=== PATIENT | female | born 1955 | race Caucasian/White ===

== ENCOUNTER 2018-10-08 11:23 | Outpatient (CLI) | payer BC ==
--- NOTE | 2018-10-08 12:16 | RAD ---
THREE VIEWS CERVICAL SPINE: Comparison: None. History: Neck pain that radiates down to the fingers. FINDINGS: Lateral view of the cervical spine was performed in neutral, flexion and extension. The vertebral bod ies demonstrate normal height and alignment without fracture or subluxation. Alignment is unchanged w ith flexion and extension. The C5-6 through C7-T1 intervertebral discs are narrowed with small anteri or osteophytes. IMPRESSION: Degenerative changes of the lower cervical spine with unchanged alignment with bending. POS: TPC
== END 2018-10-08 11:24 | disposition home or self-care (01) ==
LOC: TBSIIMAG 11:23
PROVIDERS: ATTEND Neurological Surgery
DX: M47.22 Other spondylosis with radiculopathy, cervical region (principal); M50.30 Other cervical disc degeneration, unspecified cervical region; M50.20 Other cervical disc displacement, unspecified cervical region
CPT/HCPCS: 72040

== ENCOUNTER 2019-01-27 14:00 | Outpatient (CLI) | payer BC ==
[2019-01-27 16:08] LABS: Hemoglobin 13.2 g/dL (12.0-16.0); Mean Corpuscular HGB CONC 31.9 g/dL (32.0-36.0); Mean Corpuscular Hemoglobin 29.3 pg (27.0-31.0); Mean Platelet Volume 6.8 fL (7.4-10.4); Platelet Count 317 thou/uL (130-400); RBC Distribution Width 11.7 % (11.5-14.5); White Blood Cell (WBC) Count 10.2 thou/uL (4.8-10.8)
[2019-01-27 16:15] LABS: INR-International Normal Ratio 0.9; PTT 29.1 SEC (22.9-36.1); Prothrombin Time 12.6 SEC (12.0-14.7)
[2019-01-27 16:27] LABS: Anion Gap 11 mmol/L (10-20); BUN (Urea Nitrogen) 13 mg/dL (9.8-20.1); Calc. Creatinine Clearance 0 mL/min (70-130); Calcium 9.3 mg/dL (7.8-10.44); Carbon Dioxide 26 mmol/L (23-31); Chloride 104 mmol/L (98-107); Estimated GFR-MDRD 85; Glucose 77 mg/dL (80-115); Sodium 137 mmol/L (136-145)
== END 2019-01-27 14:01 | disposition home or self-care (01) ==
LOC: LABBT 14:00
PROVIDERS: ATTEND Neurological Surgery
DX: Z01.812 Encounter for preprocedural laboratory examination (principal); M50.20 Other cervical disc displacement, unspecified cervical region; M50.30 Other cervical disc degeneration, unspecified cervical region
CPT/HCPCS: 80048; 85027; 85610; 85730

== ENCOUNTER 2019-02-01 05:47 | Day surgery (SDC) | payer BC ==
--- NOTE | 2019-01-27 19:40 | HP ---
HISTORY OF PRESENT ILLNESS: This is a 63-year-old female, who reports to our office for evaluation of neck and right arm radiculopathy. The patient states that she has had pain for years; however, recently the pain has gotten worse and no longer controlled with injections. For some time, the patient has been able to control pain with injections and physical therapy. However, in the last few months, the injections do not seem to be giving her the relief they used to. The patient states the pain runs down the back of her shoulder blades to the side of her arm into her pointer and middle and ring fingers. She states that it is worse sometimes, her whole hand will go tingly and numb. She has had pain, numbness, tingly, and has been using home exercise program with a home traction device. REVIEW OF SYSTEMS: A 10-point review of systems has been completed and is negative other than stated in the above HPI. PAST MEDICAL HISTORY: Asthma, history of miscarriage, thyroid problems, chronic sinusitis. PAST SURGICAL HISTORY: Gastric sleeve in 2009, hysterectomy, wisdom teeth removal, C-sections, D and C, tummy tuck, breast lift, tonsillectomy, cholecystectomy, L4-L5 surgery in 2017. FAMILY HISTORY: Father was , diagnosed with COPD, hypertension, congestive heart failure, alcoholism, heart disease. Mother , diagnosed with hypertension and heart disease. SOCIAL HISTORY: The patient is a nonsmoker. Denies alcohol or drug use. MEDICATIONS: 1. Pravastatin. 2. Synthroid. 3. Vitamin D3. 4. [place]-3. 5. Advil. 6. Vivelle-Dot (estradiol). 7. Lutein. 8. Tramadol. ALLERGIES: TETANUS, MORPHINE, CODEINE, DOXYCYCLINE, AND LYRICA. PHYSICAL EXAMINATION: CONSTITUTIONAL: The patient is alert and oriented, nontoxic. HEENT. Head is normocephalic and atraumatic. Pupils are equal, round, and reactive to light. Extraocular movements are intact. Hearing is intact. Moist mucous membranes. NECK: Normal, soft, supple. No masses are noted. Range of motion is intact, but painful. NEUROLOGIC: Awake, alert, oriented x3. Memory, attention, fund of knowledge, and language are normal. Cranial nerves are grossly intact. Upper extremities, deltoid, wrist extension, finger extension, finger intrinsics 5/5 bilaterally. Biceps, triceps 4+/5 bilaterally. Reflexes symmetric. Decreased sensation in right compared to left towards pointer, middle, and ring fingers. IMAGING: MRI of the cervical spine, generalized degeneration and herniated nucleus pulposus right C4-C5, moderate herniated nucleus pulposus of left C5-C6, moderate C6-C7 bilaterally. ASSESSMENT AND PLAN: Dr. Armstrong has offered an ACDF. The patient states that she understands the risks and is willing to proceed. Job ID: [id number]
[2019-02-01] MEDS ORDERED: Sodium Chloride 0.9% 10 ML ONE (06:17)
[2019-02-01] MEDS ORDERED: Thrombin 5000 UNITS/5 ML VIAL ONE (06:17)
[2019-02-01] MEDS ORDERED: Fentanyl 100 MCG/2 ML VIAL ONE ×3 (06:19→10:01)
[2019-02-01] MEDS ORDERED: Non-Formulary Medication 1 EACH PO PRN (09:39)
[2019-02-01] MEDS ORDERED: Ondansetron HCl/PF 4 MG/2 ML Vial IVP PRN (09:39)
[2019-02-01] MEDS ORDERED: Promethazine HCl 25 MG/ML VIAL SLOW IVP PRN (09:39)
[2019-02-01] MEDS ORDERED: Morphine Sulfate 2 MG/ML SYRINGE SLOW IVP PRN (09:39)
[2019-02-01] MEDS ORDERED: HYDROcodone/Acetaminophen 5/325 mg Tablet PO PRN ×2 (09:43→09:44)
--- NOTE | 2019-02-01 11:34 | OP ---
DATE OF PROCEDURE: 02/01/2019 [employer] INSPECTOR: July Madera PA-C PREOPERATIVE INDICATION: Treat pain and prevent neurological deterioration. PREOPERATIVE DIAGNOSES: Intervertebral disk herniation right-sided, C6-C7 with C7 radiculopathy. POSTOPERATIVE DIAGNOSES: Intervertebral disk herniation right-sided, C6-C7 with C7 radiculopathy. PROCEDURES PERFORMED: Anterior cervical diskectomy, intervertebral arthrodesis, placement of intervertebral biomechanical device, anterior cervical plating C6-C7, local morselized autograft, morselized allograft, and operating microscope. PREOPERATIVE MEDICATIONS: Ancef 2 g IV. DRAIN NUMBER: Zero. DRAIN TYPE: None. DESCRIPTION OF PROCEDURE: The patient was brought to the operating room. General endotracheal anesthesia was induced. The patient was positioned with her head supported by a donut-shaped headrest and the neck was in normal anatomic alignment. A lateral fluoro radiograph was used to plan our incision. The right side of the neck was sterilely prepped and draped. We opened our incision with a 10 blade knife and controlled bleeding with bipolar cautery. We dissected sharply to the platysma and cut this muscle in-line with our incision. We continued our dissection medial to the sternocleidomastoid and lateral to the trachea and esophagus. We arrived to the prevertebral space. C6-C7 was difficult to visualize through the shoulder, so we placed a marker at C4-C5 and took a lateral fluoro radiograph. From there, we counted down two interspaces. Then, elevated the longus colli muscles off the anterior surface of C6 and C7, and placed self-retaining retractors beneath them. Distraction pins were placed in these two vertebrae and we distracted across the intervening interspace. We incised the interspace with a 15 blade knife and removed disk contents using curettes and rongeurs. The operative microscope was brought into the field. Under microscopic magnification and using microsurgical techniques, we removed the remainder of the intervertebral disk. We accessed the ventral epidural space with a microcurette and without access point, we used Kerrison rongeurs to remove the posterior longitudinal ligament and posterior osteophytes at C6-C7. We decompressed across the entire interspace well out into the foramina on both sides. There was more disk material encroaching on the foramen on the right side and the dura looked mildly erythematous around the nerve suggesting irritation. With our decompression secured, we turned our attention to arthrodesis. With curettes, we prepared the endplates for grafting. A bone rasp was used to measure the height of the interspace. The 7 mm bone graft fit well. We brought a 7 mm PEEK intervertebral device into the field. Osteophytes removed during our decompression, were carefully morselized on the back table after soft tissue was removed. The morselized bone was added to demineralized bone matrix as our fusion substrate and the substrate was packed into the center of this was 7 mm PEEK graft. The graft was advanced into the interspace under radiographic guidance to the appropriate depth. We then took the operative microscope out as well as the distraction pins. A 12 mm anterior cervical plate was brought into the field. We drilled fixed wing pilot holes through the plate into the vertebral bodies at C6 and C7. We affixed the plate with 14 mm fixed screws at C7 and 14 mm variable angle screws at C6. We engaged the locking mechanism over each of the 4 screws. AP and lateral fluoro radiographs confirmed adequate positioning of our instrumentation. We irrigated copiously with bacitracin irrigation. We closed the wound in anatomical layers. We applied a sterile dressing. This was a clean case, no contamination. Job ID: [id number]
[2019-02-01] MEDS ORDERED: traMADol HCl 50 MG TAB ONE (12:36)
[2019-02-01] MEDS ORDERED: Loratadine/Pseudoephedrine 10/240 mg Tablet PO SCH (13:30)
[2019-02-01] MEDS ORDERED: Dexamethasone 20 MG/5 ML VIAL ONE (13:45)
[2019-02-01] MEDS ORDERED: Rocuronium Bromide 10 MG/ML (10ML VIAL) ONE (13:45)
[2019-02-01] MEDS ORDERED: Lidocaine 2% PF 5 ML VIAL ONE (13:45)
[2019-02-01] MEDS ORDERED: Ondansetron PF 4 MG/2 ML Vial ONE (13:45)
[2019-02-01] MEDS ORDERED: Glycopyrrolate 0.2 MG/ML 5 ML SYRINGE ONE (13:45)
[2019-02-01] MEDS ORDERED: PROPOFOL 200 MG/20 ML VIAL ONE (13:45)
[2019-02-01] MEDS ORDERED: diphenhydrAMINE 50 MG/ML VIAL ONE (13:45)
[2019-02-01] MEDS ORDERED: Sodium Chloride 0.9% 100 ML ONE (14:17)
== END 2019-02-01 15:15 | disposition home or self-care (01) ==
LOC: SDC 05:47
PROVIDERS: ATTEND Neurological Surgery
PROC: 0RT30ZZ Resection of Cervical Vertebral Disc, Open Approach (ICD-10-PCS; principal; 2019-02-01)
PROC: 0RG10A0 Fusion of Cervical Vertebral Joint with Interbody Fusion Device, Anterior Approach, Anterior Column, Open Approach (ICD-10-PCS; principal; 2019-02-01)
DX: M50.123 Cervical disc disorder at C6-C7 level with radiculopathy (principal); J45.909 Unspecified asthma, uncomplicated; E07.9 Disorder of thyroid, unspecified; Z79.82 Long term (current) use of aspirin; Z79.899 Other long term (current) drug therapy; Z88.1 Allergy status to other antibiotic agents; Z88.5 Allergy status to narcotic agent; Z88.7 Allergy status to serum and vaccine; Z88.8 Allergy status to other drugs, medicaments and biological substances; Z91.041 Radiographic dye allergy status; Z98.84 Bariatric surgery status
CPT/HCPCS: 76000; 93005; 93010; C1713; C1776; J0131; J0690; J1100; J1200; J2001; J2405; J2704; J3010; J3490

== ENCOUNTER 2019-03-29 14:08 | Outpatient (CLI) | payer BC ==
--- NOTE | 2019-03-29 15:31 | RAD ---
CERVICAL SPINE THREE VIEWS: HISTORY: Surgery. Follow-up exam. COMPARISON: 10/08/2018 FINDINGS: Interval placement of an anterior fusion plate with a transvertebral body screw at C6 and C7. Straig htening of normal cervical lordosis. Moderate loss of disk space height and osteophyte formation at C5-C6. There is 1.5 mm of anterolisthesis at C4 upon C5. There is no prevertebral soft tissue swelling. The predental space is normal. No malalignment on the AP projection. IMPRESSION: 1. Findings compatible with cervical fusion at C6-C7. 2. Grade 1 anterolisthesis of C4 upon C5. 3. Moderate degenerative change at C5-C6, stable. POS: OFF
== END 2019-03-29 14:09 | disposition home or self-care (01) ==
LOC: TBSIIMAG 14:08
PROVIDERS: ATTEND Neurological Surgery
DX: M47.22 Other spondylosis with radiculopathy, cervical region (principal); M43.12 Spondylolisthesis, cervical region; Z98.1 Arthrodesis status
CPT/HCPCS: 72040

== ENCOUNTER 2021-08-13 11:08 | Outpatient (CLI) | payer BC | END 2021-08-13 11:09 | disposition home or self-care (01) | LOC: CTENTCT 11:08 | PROVIDERS: ATTEND Specialist | DX: J32.9 Chronic sinusitis, unspecified (principal) | CPT/HCPCS: 70486 ==

== ENCOUNTER 2022-08-05 12:32 | Outpatient (CLI) | payer BC | END 2022-08-05 12:33 | disposition home or self-care (01) | LOC: TBSIIMAG 12:32 | PROVIDERS: ATTEND Neurological Surgery | DX: M47.22 Other spondylosis with radiculopathy, cervical region (principal); M47.26 Other spondylosis with radiculopathy, lumbar region; Z98.1 Arthrodesis status; Z98.890 Other specified postprocedural states | CPT/HCPCS: 72050; 72110 ==

== ENCOUNTER 2022-10-01 10:49 | Outpatient (CLI) | payer BC | END 2022-10-01 10:50 | disposition home or self-care (01) | LOC: TBSIIMAG 10:49 | PROVIDERS: ATTEND Neurological Surgery | DX: M47.22 Other spondylosis with radiculopathy, cervical region (principal); Z98.890 Other specified postprocedural states; Z98.1 Arthrodesis status | CPT/HCPCS: 72141 ==